=== PATIENT | female | born 1935 | race Two or more races ===

== ENCOUNTER 2020-04-06 08:23 | Outpatient (CLI) | payer OTHER | END 2020-04-06 08:25 | disposition home or self-care (01) | LOC: NUCLEAR 08:23 | PROVIDERS: ATTEND Internal Medicine Gastroenterology | DX: K30 Functional dyspepsia (principal); R11.0 Nausea; R14.0 Abdominal distension (gaseous); K59.09 Other constipation; R19.7 Diarrhea, unspecified | CPT/HCPCS: 78227; A9537; J2805 ==

== ENCOUNTER 2020-04-17 08:50 | Outpatient (CLI) | payer OTHER | END 2020-04-17 08:57 | disposition home or self-care (01) | LOC: NUCLEAR 08:50 | PROVIDERS: ATTEND Internal Medicine Gastroenterology | DX: K30 Functional dyspepsia (principal); R19.7 Diarrhea, unspecified; R11.0 Nausea; K59.09 Other constipation | CPT/HCPCS: 78264; A9541 ==

== ENCOUNTER 2021-03-08 11:32 | Outpatient (CLI) | payer OTHER | END 2021-03-08 11:35 | disposition home or self-care (01) | LOC: SONOGRAMA 11:32 | PROVIDERS: ATTEND Pathology Anatomic Pathology & Clinical Pathology | DX: E04.1 Nontoxic single thyroid nodule (principal) ==